=== PATIENT | male | born 1985 | race Caucasian/White ===

== ENCOUNTER 2017-01-13 15:27 | Emergency (ER) | payer OTHER ==
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
[2017-01-13] MEDS ORDERED: KETOROLAC TROMETHAMINE INJ/PF 30 MG/1 ML SDV IV ONE (15:39)
[2017-01-13 15:59] LABS: ABSOLUTE BASOPHILS # (AUTO) 0.1 10^3/uL (0.0-0.2); ABSOLUTE EOSINOPHILS # (AUTO) 0.2 10^3/uL (0.0-0.6); ABSOLUTE LYMPHOCYTES (AUTO) 2.1 10^3/uL (0.5-4.7); ABSOLUTE MONOCYTES (AUTO) 0.7 10^3/uL (0.1-1.4); ABSOLUTE NEUT (AUTO) 2.1 10^3/uL (1.7-8.2); BASOPHILS % (AUTO) 1.2 % (0-2); EOSINOPHILS % (AUTO) 3.7 % (0-6); HEMATOCRIT 38.1 % (37.9-51.0); HEMOGLOBIN 12.9 g/dL (13.5-17.0); HGB HCT DIFFERENCE 0.6; LYMPHOCYTES % (AUTO) 40.4 % (13-45); MEAN CORPUSCULAR HEMOGLOBIN 30.3 pg (27.0-33.4); MEAN CORPUSCULAR VOLUME 89 fl (80-97); MONOCYTES % (AUTO) 13.8 % (3-13); RED BLOOD COUNT 4.28 10^6/uL (4.35-5.55); RED CELL DISTRIBUTION WIDTH 13.4 % (11.5-14.0); SEGMENTED NEUTROPHILS % (AUTO) 40.9 % (42-78); WHITE BLOOD COUNT 5.2 10^3/uL (4.0-10.5)
[2017-01-13 16:18] LABS: ANION GAP 10 (5-19); BLOOD UREA NITROGEN 13 mg/dL (7-20); CALCIUM 9.9 mg/dL (8.4-10.2); CARBON DIOXIDE 31 mmol/L (22-30); CHLORIDE 103 mmol/L (98-107); CREATININE RESULT 1.26 mg/dL (0.52-1.25); GLUCOSE 90 mg/dL (75-110); POTASSIUM 4.8 mmol/L (3.6-5.0); SODIUM 143.9 mmol/L (137-145)
[2017-01-13 20:42] VITALS: BP 131/90
== END 2017-01-13 20:39 | disposition home or self-care (01) ==
LOC: ER 15:27
DX: M25.561 Pain in right knee (principal); M25.562 Pain in left knee; M54.5 Low back pain; M79.89 Other specified soft tissue disorders; W17.89XA Other fall from one level to another, initial encounter; Y93.39 Activity, other involving climbing, rappelling and jumping off; Y92.149 Unspecified place in prison as the place of occurrence of the external cause; R51 Headache; R04.2 Hemoptysis; R10.9 Unspecified abdominal pain; I10 Essential (primary) hypertension; Z87.891 Personal history of nicotine dependence
CPT/HCPCS: 99284; 96374; 36415; 85025; 80048; 73560; 70450; 72125; 74177; J1885

== ENCOUNTER 2018-06-14 08:03 | Emergency (ER) | payer SELFPAY ==
[2018-06-14] MEDS ORDERED: ONDANSETRON HCL INJ/PF 4 MG/2 ML SDV IV ONE (09:53)
[2018-06-14] MEDS ORDERED: LORAZEPAM INJ 2 MG/1 ML VIAL IV ONE (09:53)
[2018-06-14] MEDS ORDERED: CLONIDINE 0.1 MG/24 HR PATCH.TDWK TD ONE (09:53)
[2018-06-14] MEDS ORDERED: CLONIDINE HCL 0.1 MG TABLET PO ONE (09:54)
--- NOTE | 2018-06-14 09:54 | ER Document Report ---
ED General - General Chief Complaint: Bloody Stools Stated Complaint: BLOODY STOOL Time Seen by Provider: 06/14/18 09:18 Notes: This is a 33-year-old male to the emergency department chief complaint of abdominal pain, abdominal cramps, blood in his stool. Patient states that he tried to kill himself about 3 weeks ago by swallowing a bunch of nails and screws. Had upper endoscopy and multiple screws and metallic foreign bodies were removed. Was told nothing else to worry about. Was on Suboxone but has not taken any for 3 days. History of heroin abuse. States that he cannot stop shaking, he has abdominal pain and he is pooping and peeing blood. TRAVEL OUTSIDE OF THE [place] IN LAST 30 DAYS: No - HPI Onset: Yesterday Onset/Duration: Gradual, Persistent, Worse Quality of pain: Achy Severity: Moderate Pain Level: 4 Associated symptoms: Nausea, Vomiting - Related Data Allergies/Adverse Reactions: No Known Allergies Allergy (Verified 06/14/18 08:04) Past Medical History - General Information source: Patient - Social History Smoking Status: Current Every Day Smoker Frequency of alcohol use: Occasional Drug Abuse: Heroin, Other Lives with: Family Family History: Reviewed & Not Pertinent - Past Medical History Cardiac Medical History: Reports: Hx Hypertension Renal/ Medical History: Reports: Hx Renal Insufficiency GI Medical History: Reports: Hx Liver Failure Psychiatric Medical History: Reports: Hx Depression - Immunizations Immunizations up to date: Yes Hx Diphtheria, Pertussis, Tetanus Vaccination: Yes Review of Systems - Review of Systems Notes: Constitutional: denies: Diaphoresis, Fever, Malaise, Weakness. Positive for chills and shaking EENT: denies: Eye discharge, Blurred vision, Tearing, Double vision, Nose congestion, Nose discharge, Throat swelling, Mouth pain Cardiovascular: denies: Palpitations, Heart racing, Orthopnea, Dyspnea, Chest pain Respiratory: denies: Cough, Hurts to breathe, Wheezing, Shortness of breath Gastrointestinal: denies: Abdominal pain, nausea, vomiting, bright red blood per rectum, black stools. Genitourinary: denies: Burning, Dysuria, Discharge, Frequency, Flank pain. Positive for: Hematuria Musculoskeletal: denies: Joint pain, Joint swelling, Muscle pain, Muscle stiffness, back pain Hematologic/Lymphatic: denies: Anemia, Easy bleeding, Easy bruising, Blood clots Neurological/Psychological: denies: Confusion, Dementia, Depression, Loss of consciousness Skin: No lesions, no masses, no skin breakdown, no abscesses Physical Exam - Vital signs Vitals: Temp Pulse Resp BP Pulse Ox 98.9 F 102 H 18 146/92 H 98 06/14/18 08:18 06/14/18 08:18 18 08:18 06/14/18 08:18 06/14/18 08:18 Interpretation: Normal - General General appearance: Appears well, Alert - HEENT Head: Normocephalic, Atraumatic Eyes: Normal Pupils: PERRL - Respiratory Respiratory status: No respiratory distress Chest status: Nontender Breath sounds: Normal Chest palpation: Normal - Cardiovascular Rhythm: Regular Heart sounds: Normal auscultation Murmur: No - Abdominal Inspection: Normal Distension: No distension Bowel sounds: Normal Tenderness: Nontender Organomegaly: No organomegaly - Rectal Tenderness: No Stool: Heme negative Hemorrhoids: None Prostate: Normal - Back Back: Normal, Nontender - Extremities General upper extremity: Normal inspection, Nontender, Normal color, Normal ROM , Normal temperature General lower extremity: Normal inspection, Nontender, Normal color, Normal ROM , Normal temperature, Normal weight bearing. No: Shruti's sign - Neurological Neuro grossly intact: Yes Cognition: Normal Orientation: AAOx4 Corey Coma Scale Eye Opening: Spontaneous Corey Coma Scale Verbal: Oriented Corey Coma Scale Motor: Obeys Commands Corey Coma Scale Total: 15 Speech: Normal Motor strength normal: LUE, RUE, LLE, RLE Sensory: Normal - Psychological Associated symptoms: Normal affect, Normal mood - Skin Skin Temperature: Warm Skin Moisture: Dry Skin Color: Normal Course - Re-evaluation Re-evalutation: 06/14/18 14:51 Patient had complaints of workup in the emergency department. Labs were negative. Imaging studies were negative. Was given clonidine patch as well as oral clonidine and Ativan. This seems to help. Patient was IV hydrated. Vital signs are normal. Comfortable at this time discharging. 06/14/18 14:51 Laboratory 06/14/18 06/14/18 06/14/18 09:15 09:15 09:15 WBC 7.9 RBC 4.50 Hgb 13.6 Hct 40.1 MCV 89 MCH 30.2 MCHC 33.9 RDW 14.3 H Plt Count 269 Seg Neutrophils % 71.0 Lymphocytes % 21.3 Monocytes % 6.6 Eosinophils % 0.4 Basophils % 0.7 Absolute Neutrophils 5.6 Absolute Lymphocytes 1.7 Absolute Monocytes 0.5 Absolute Eosinophils 0.0 Absolute Basophils 0.1 PT 13.4 INR 0.97 APTT 28.6 Sodium 144.5 Potassium 4.6 Chloride 108 H Carbon Dioxide 22 Anion Gap 15 BUN 12 Creatinine 0.93 Est GFR ( Amer) > 60 Est GFR (Non-Af Amer) > 60 Glucose 102 Calcium 10.1 Total Bilirubin 0.6 Direct Bilirubin 0.3 Neonat Total Bilirubin Not Reportable Neonat Direct Bilirubin Not Reportable Neonat Indirect Bili Not Reportable AST 70 H ALT 125 H Alkaline Phosphatase 73 Total Protein 7.3 Albumin 4.4 Lipase 59.0 Urine Color Urine Appearance Urine pH Ur Specific [place] Urine Protein Urine Glucose (UA) Urine Ketones Urine Blood Urine Nitrite Urine Bilirubin Urine Urobilinogen Ur Leukocyte Esterase Urine WBC (Auto) Urine RBC (Auto) Urine Bacteria (Auto) Squamous Epi Cells Auto Urine Mucus (Auto) Urine Ascorbic Acid Stool Occult Blood Urine Opiates Screen Urine Methadone Screen Ur Barbiturates Screen Ur Phencyclidine Scrn Ur Amphetamines Screen U Benzodiazepines Scrn Urine Cocaine Screen U Marijuana (THC) Screen 06/14/18 06/14/18 06/14/18 09:15 09:15 09:50 WBC RBC Hgb Hct MCV MCH MCHC RDW Plt Count Seg Neutrophils % Lymphocytes % Monocytes % Eosinophils % Basophils % Absolute Neutrophils Absolute Lymphocytes Absolute Monocytes Absolute Eosinophils Absolute Basophils PT INR APTT Sodium Potassium Chloride Carbon Dioxide Anion Gap BUN Creatinine Est GFR ( Amer) Est GFR (Non-Af Amer) Glucose Calcium Total Bilirubin Direct Bilirubin Neonat Total Bilirubin Neonat Direct Bilirubin Neonat Indirect Bili AST ALT Alkaline Phosphatase Total Protein Albumin Lipase Urine Color DARK YELLOW Urine Appearance SLIGHTLY-CLOUDY Urine pH 5.0 Ur Specific [place] 1.032 Urine Protein 30 H Urine Glucose (UA) NEGATIVE Urine Ketones NEGATIVE Urine Blood LARGE H Urine Nitrite NEGATIVE Urine Bilirubin NEGATIVE Urine Urobilinogen NEGATIVE Ur Leukocyte Esterase NEGATIVE Urine WBC (Auto) 3 Urine RBC (Auto) 18 Urine Bacteria (Auto) TRACE Squamous Epi Cells Auto 2 Urine Mucus (Auto) MANY Urine Ascorbic Acid NEGATIVE Stool Occult Blood NEGATIVE Urine Opiates Screen UNCONFIRMED POSITIVE Urine Methadone Screen NEGATIVE Ur Barbiturates Screen NEGATIVE Ur Phencyclidine Scrn NEGATIVE Ur Amphetamines Screen NEGATIVE U Benzodiazepines Scrn NEGATIVE Urine Cocaine Screen NEGATIVE U Marijuana (THC) Screen NEGATIVE Acute Abdomen Series 06/14/18 09:53 IMPRESSION: NO RADIOGRAPHIC EVIDENCE FOR ACUTE ABDOMINAL DISEASE. Abdomen/Pelvis CT 06/14/18 11:36 IMPRESSION: NO SIGNIFICANT OR ACUTE PROCESS IN THE ABDOMEN OR PELVIS. - Vital Signs Vital signs: Temp Pulse Resp BP Pulse Ox 98.9 F 86 9 L 113/66 100 06/14/18 08:18 06/14/18 10:52 06/14/18 12:00 06/14/18 11:01 06/14/18 12:00 - Laboratory Result Diagrams: 06/14/18 09:15 06/14/18 09:15 Laboratory results interpreted by me: 06/14/18 06/14/18 06/14/18 09:15 09:15 09:15 RDW 14.3 H Chloride 108 H AST 70 H ALT 125 H Urine Protein 30 H Urine Blood LARGE H Discharge - Discharge Clinical Impression: Narcotic withdrawal Condition: Good Disposition: HOME, SELF-CARE Instructions: Narcotic Abuse ([facility]) Additional Instructions: It is possible to do you are experiencing symptoms consistent with withdrawal. Wear the clonidine patch for the next 7 days. You may take Ativan for extreme agitation. Zofran for nausea. If symptoms get worse please return. Prescriptions: Lorazepam [Ativan 0.5 mg Tablet] 0.5 mg PO TID 5 Days #15 tab Ondansetron [Zofran Odt 4 mg Tablet] 1 - 2 tab PO Q4H PRN #15 tab.rapdis PRN Reason: For Nausea/Vomiting
[2018-06-14 10:29] LABS: ABSOLUTE BASOPHILS # (AUTO) 0.1 10^3/uL (0.0-0.2); ABSOLUTE LYMPHOCYTES (AUTO) 1.7 10^3/uL (0.5-4.7); ABSOLUTE MONOCYTES (AUTO) 0.5 10^3/uL (0.1-1.4); ABSOLUTE NEUT (AUTO) 5.6 10^3/uL (1.7-8.2); BASOPHILS % (AUTO) 0.7 % (0-2); EOSINOPHILS % (AUTO) 0.4 % (0-6); HEMATOCRIT 40.1 % (37.9-51.0); HEMOGLOBIN 13.6 g/dL (13.5-17.0); LYMPHOCYTES % (AUTO) 21.3 % (13-45); MEAN CORPUSCULAR HEMOGLOBIN 30.2 pg (27.0-33.4); MEAN CORPUSCULAR HGB CONC 33.9 g/dL (32.0-36.0); MEAN CORPUSCULAR VOLUME 89 fl (80-97); MONOCYTES % (AUTO) 6.6 % (3-13); PLATELET COUNT 269 10^3/uL (150-450); RED CELL DISTRIBUTION WIDTH 14.3 % (11.5-14.0); TOTAL CELLS COUNTED % (AUTO) 100 %; WHITE BLOOD COUNT 7.9 10^3/uL (4.0-10.5)
[2018-06-14 10:31] LABS: INTERNATIONAL RATION (INR) 0.97; PROTHROMBIN TIME 13.4 SEC (11.4-15.4)
[2018-06-14 10:32] LABS: PARTIAL THROMBOPLASTIN TIME 28.6 SEC (23.5-35.8)
[2018-06-14 10:33] LABS: APPEARANCE,URINE SLIGHTLY-CLOUDY; BILIRUBIN,URINE NEGATIVE (NEGATIVE); GLUCOSE, URINE NEGATIVE (NEGATIVE); KETONES,URINE NEGATIVE (NEGATIVE); LEUKOCYTE ESTERASE,URINE NEGATIVE (NEGATIVE); NITRITE,URINE NEGATIVE (NEGATIVE); PROTEIN,URINE 30 mg/dL (NEGATIVE); URINE SPECIFIC GRAVITY 1.032; UROBILINOGEN,URINE NEGATIVE mg/dL (<2.0)
[2018-06-14 10:35] LABS: COLOR,URINE DARK YELLOW
--- NOTE | 2018-06-14 10:37 | RADIOLOGY REPORT (SQ) ---
EXAM DESCRIPTION: ACUTE ABDOMEN SERIES COMPLETED DATE/TIME: 06/14/2018 10:26 am REASON FOR STUDY: abd pain COMPARISON: 08/07/2016 NUMBER OF VIEWS: Three views. TECHNIQUE: Frontal chest, supine abdomen and upright/decubitus abdomen radiographic images acquired. LIMITATIONS: None. FINDINGS: CHEST: Lungs clear of infiltrates. FREE AIR: None. No abnormal gas collections. BOWEL GAS PATTERN: Nonobstructive pattern. No dilated loops or air fluid levels. CALCIFICATIONS: No suspicious calcifications. HARDWARE: None in the abdomen. SOFT TISSUES: No gross mass or suggestion of organomegaly. BONES: No acute fracture. No worrisome bone lesions. OTHER: No other significant finding. IMPRESSION: NO RADIOGRAPHIC EVIDENCE FOR ACUTE ABDOMINAL DISEASE. TECHNICAL DOCUMENTATION: JOB ID: [id number] [employer]- All Rights Reserved Reading location - IP/workstation name: [id number]
[2018-06-14 10:41] LABS: ALANINE AMINOTRANSFERASE 125 U/L (21-72); ALBUMIN 4.4 g/dL (3.5-5.0); ALKALINE PHOSPHATASE 73 U/L (38-126); ANION GAP 15 (5-19); ASPARTATE AMINO TRANSFERASE 70 U/L (17-59); BILIRUBIN,DIRECT 0.3 mg/dL (0.0-0.4); BILIRUBIN,TOTAL 0.6 mg/dL (0.2-1.3); BLOOD UREA NITROGEN 12 mg/dL (7-20); CALCIUM 10.1 mg/dL (8.4-10.2); CARBON DIOXIDE 22 mmol/L (22-30); CHLORIDE 108 mmol/L (98-107); GLUCOSE 102 mg/dL (75-110); POTASSIUM 4.6 mmol/L (3.6-5.0); SODIUM 144.5 mmol/L (137-145); TOTAL PROTEIN 7.3 g/dL (6.3-8.2)
[2018-06-14 10:46] LABS: URINE AMPHETAMINES SCREEN NEGATIVE; URINE BARBITURATES SCREEN NEGATIVE; URINE BENZODIAZEPINES SCREEN NEGATIVE; URINE COCAINE SCREEN NEGATIVE; URINE MARIJUANA (THC) SCREEN NEGATIVE; URINE METHADONE SCREEN NEGATIVE; URINE PHENCYCLIDINE SCREEN NEGATIVE
[2018-06-14] MEDS: NORMAL SALINE 1000 ML 1,000 ML IV PRN ×2 (10:51→11:39)
[2018-06-14] MEDS ORDERED: KETOROLAC TROMETHAMINE INJ/PF 30 MG/1 ML SDV IV ONE (11:36)
--- NOTE | 2018-06-14 13:20 | RADIOLOGY REPORT (SQ) ---
EXAM DESCRIPTION: CT ABD/PELVIS NO ORAL OR IV COMPLETED DATE/TIME: 06/14/2018 11:51 am REASON FOR STUDY: flank pain,hematuria COMPARISON: CT ABDOMEN PELVIS 01/13/2017, 08/26/2016 TECHNIQUE: CT scan of the abdomen and pelvis performed without intravenous or oral contrast. Images reviewed with lung, soft tissue, and bone windows. Reconstructed coronal and sagittal MPR images revi ewed. All images stored on PACS. All CT scanners at this facility use dose modulation, iterative reconstruction, and/or weight based d osing when appropriate to reduce radiation dose to as low as reasonably achievable (ALARA). [facility]: Dose Right [facility]: CareDose [facility]: Dose Right [facility]: Teradose 4D [facility]: [employer] RADIATION DOSE: CT Rad equipment meets quality standard of care and radiation dose reduction techniq ues were employed. CTDIvol: 5.9 mGy. DLP: 346 mGy-cm.mGy. LIMITATIONS: None. FINDINGS: LOWER CHEST: No significant findings. No nodules or infiltrates. NON-CONTRASTED LIVER, SPLEEN, ADRENALS: Evaluation limited by lack of IV contrast. No identified sign ificant masses. Benign 2 cm cyst left lobe liver anteriorly. PANCREAS: No masses. No peripancreatic inflammatory changes. GALLBLADDER: Single small less than 1 cm stone in the gallbladder. No inflammatory changes to suggest cholecystitis. RIGHT KIDNEY AND URETER: No suspicious masses. Assessment limited by lack of IV contrast. No signif icant calcifications. No hydronephrosis or hydroureter. LEFT KIDNEY AND URETER: No suspicious masses. Assessment limited by lack of IV contrast. No signifi cant calcifications. No hydronephrosis or hydroureter. AORTA AND RETROPERITONEUM: No aneurysm. No retroperitoneal masses or adenopathy. BOWEL AND PERITONEAL CAVITY: No obvious masses or inflammatory changes. No free fluid. APPENDIX: Normal. PELVIS, BLADDER, AND ABDOMINAL WALL:No abnormal masses. No free fluid. Bladder normal. BONES: Bilateral L5 spondylolysis without listhesis. . OTHER: No other significant finding. IMPRESSION: NO SIGNIFICANT OR ACUTE PROCESS IN THE ABDOMEN OR PELVIS. COMMENT: Quality ID # [id number]: Final reports with documentation of one or more dose reduction techniques (e.g., Automated exposure control, adjustment of the mA and/or kV according to patient size, use of iterative reconstruction technique) TECHNICAL DOCUMENTATION: JOB ID: [id number] [email or web address]- All Rights Reserved Reading location - IP/workstation name: [email or web address]
[2018-06-14 14:17] VITALS: BP 113/66
== END 2018-06-14 14:30 | disposition home or self-care (01) ==
LOC: ER 08:03
DX: F11.23 Opioid dependence with withdrawal (principal); K92.1 Melena; R31.0 Gross hematuria; R10.9 Unspecified abdominal pain; F17.200 Nicotine dependence, unspecified, uncomplicated; I10 Essential (primary) hypertension; Z91.5 Personal history of self-harm; Z98.890 Other specified postprocedural states
CPT/HCPCS: 99285; 96361; 96374; 96375; 36415; 83690; 85025; 85610; 85730; 82272; 80053; 81001; 80307; 74022; 74176; J1885; J2060; J2405; J7030; J3490

== ENCOUNTER 2018-10-30 09:37 | Emergency (ER) | payer SELFPAY ==
[2018-10-30] MEDS ORDERED: ONDANSETRON HCL INJ/PF 4 MG/2 ML SDV IV ONE (09:48)
[2018-10-30] MEDS ORDERED: FENTANYL CITRATE INJ/PF 100 MCG/2 ML AMPUL IV ONE (09:48)
[2018-10-30] MEDS ORDERED: NORMAL SALINE 1000 ML 1,000 ML IV ONE (09:49)
--- NOTE | 2018-10-30 09:50 | ER Document Report ---
ED Medical Screen (RME) - General Chief Complaint: Overdose Stated Complaint: OVERDOSE Time Seen by Provider: 10/30/18 09:46 TRAVEL OUTSIDE OF THE [place] IN LAST 30 DAYS: No - Related Data Allergies/Adverse Reactions: No Known Allergies Allergy (Verified 10/30/18 09:38) Past Medical History - Past Medical History Cardiac Medical History: Reports: Hx Hypertension Renal/ Medical History: Reports: Hx Renal Insufficiency. Denies: Hx Peritoneal Dialysis GI Medical History: Reports: Hx Liver Failure Psychiatric Medical History: Reports: Hx Depression - Immunizations Immunizations up to date: Yes Hx Diphtheria, Pertussis, Tetanus Vaccination: Yes Course - Re-evaluation Re-evalutation: 10/30/18 09:49 This is a 33-year-old man that presented for evaluation of an ingestion of broken batteries at least 2 of them in half as well as multiple nails and an attempt to inject air into his veins. He states this was an intentional overdose to try and kill himself. He is done once like this in the past and required endoscopy for removal saying that it almost killed him. He is obviously uncomfortable, will initiate a broad workup including tox screen and urine drug screen, cardiac monitoring, EKG, acetaminophen and salicylate level. I will plan for this patient undergo further investigation evaluation by secondary provider, the the appropriate diagnostics, disposition and workup will be deferred to that provider. I have performed a rapid screening examination and they will require further evaluation.
--- NOTE | 2018-10-30 10:10 | ER Document Report ---
Addendum entered and electronically signed by KLAUS PAGE LCSWA 11/05/18 11:36: Discharge - Discharge Clinical Impression: Noncompliance with medication regimen, Cocaine abuse, Substance abuse, Suicidal ideation, Opioid abuse Foreign body ingestion Qualifiers: Encounter type: initial encounter Qualified Code(s): T18.9XXA - Foreign body of alimentary tract, part unspecified, initial encounter Depression Qualifiers: Depression Type: unspecified Qualified Code(s): F32.9 - Major depressive disorder, single episode, unspecified Condition: Stable Disposition: HOME, SELF-CARE Additional Instructions: He has been evaluated both medical and behavioral health teams and been deemed appropriate for discharge. You are highly encouraged to follow-up with your outpatient mental health provider, [facility] [address], to receive both medication management and therapeutic services for your mental health and substance abuse. It is recommended you engage in cognitive behavioral therapy and attend both AA and NA meetings. You have been provided prescriptions for Zyprexa 5 mg twice daily, Thorazine 50 mg nightly, and Cogentin 1 mg daily; please take as directed. DEPRESSION: Your evaluation reveals that you have mental depression. While symptoms may be vague, they often include disturbance of sleep, fatigue, loss of appetite, and general loss of interest in life. While depression may be a side effect of drugs, or a reaction to a major change in your life, many cases have no known cause. If depression is acute, and related to a major loss in your life, you can expect it to clear completely with time. If you have been depressed a long time, are prone to repeated bouts of depression or low mood, or have been thinking of suicide, get help. Depression can be treated with anti-depressant medication and counselling. Long-term depression will often take a few weeks to clear, even with appropriate medication. Follow-up care is important. SUICIDAL IDEATION: Suicidal ideation is a common medical term for thoughts about suicide, which may be as detailed as a formulated plan, without the suicidal act itself. Although most people who undergo suicidal ideation do not commit suicide, some go on to make suicide attempts. The range of suicidal ideation varies greatly from fleeting to detailed planning, role playing, and unsuccessful attempts. While thoughts about suicide are common, most people do not carry out serious actions to commit suicide. Based upon your evaluation and discussion with you, we do not believe you are currently at risk to act upon your thoughts of suicide. You have agreed to return to the Emergency Department, at any time, if you feel inclined to act upon your suicidal thoughts. COCAINE ABUSE: Cocaine causes many dangerous medical problems. Problems can occur even with "usual" amounts. Cocaine affects judgement, creating a sense of invulnerability. Cocaine users often make bad decisions that seem "great" at the time. Most cocaine users eventually will be hurt by bad job performance, damaged personal relations, crime, and unsafe sexual practices. Toxic effects of cocaine can include seizures, hallucinations, delusions, high blood pressure, heart damage, or sudden . There's always the risk of a "bad batch." But heart attacks, brain hemorrhages, or cardiac arrest can occur unpredictably even with "normal" use. Injection of cocaine is risky for abscesses, endocarditis (heart infection), pneumonia, and AIDS. Withdrawal from cocaine often causes anxiety and drug cravings. Some users become paranoid and psychotic. Many treatment programs are available, but you must make the decision to quit. Medication can be prescribed to control the symptoms of cocaine toxicity (beta blockers or benzodiazepines). Withdrawal symptoms may require tranquilizers. NARCOTIC / OPIOD ABUSE: Narcotics and opiods are pain-relieving drugs that are often abused. They are addicting. Narcotics cause euphoria, but it often takes increasing amounts to "feel good" and avoid withdrawal symptoms. Overdose of narcotics causes small pupils, coma, and decreased breathing. It's a common cause of . Purity of street narcotics is unpredictable. Injection of narcotics is risky for abscesses, endocarditis (heart infection), pneumonia, and AIDS. Withdrawal from narcotics causes goose bumps, watery mouth, sweating, nasal congestion, muscle aches, abdominal cramps, vomiting, and diarrhea. There's often restlessness and confusion. Treatment programs are available, but you must make the decision to quit. Medication (such as clonidine) can be prescribed to control the symptoms of withdrawal. FOLLOW-UP CARE: If you experience worsening or a significant change in your symptoms, notify the physician immediately or return to the Emergency Department at any time for re- evaluation. Referrals: [facility] [Outside] - Follow up in 3-5 days [facility] Crisis Team [Outside] - Follow up as needed Chanelibe Attestation: 10/30/18 12:42 I personally performed the services described in the documentation, reviewed and edited the documentation which was dictated to the scribe in my presence, and it accurately records my words and actions. Original Note: ED Psych Disorder / Suicide - General Mode of Arrival: Ambulatory Information source: Patient TRAVEL OUTSIDE OF THE [place] IN LAST 30 DAYS: No <HOPE WAHL - Last Filed: 10/30/18 12:16> <MASSIEL QUIROZ - Last Filed: 10/30/18 17:19> - General Chief Complaint: Overdose Stated Complaint: OVERDOSE Time Seen by Provider: 10/30/18 09:46 Notes: Patient is a 33 year old male with a history of suicidal ideation presents to the emergency department due to an suicide attempt. Patient states he swallowed screws, nails, and opened AA batteries in attempt to commit suicide around 0800 this morning. When asked why, he states "Cornelius". When asked to elaborate he states "I'm tired of the daily struggle". Patient states he last consumed alcohol 2 days ago. Patient states that he is currently prescribed Zoloft and Seroquel but had stopped taking the medication on his own accord. Of significance, patient presented and was admitted to this hospital on 1 after swallowing nail clippers and pieces of a plastic utensil. He also presented and was admitted to this hospital on 08/27/2016 after swallowing copious amounts of screws, nails, and AA batteries. Patient also has a history of cocaine, prescription drug and alcohol abuse. (HOPE WAHL) The patient reported that he had tried injecting air into his veins and when that did not work he ingested the screws, and batteries. (MASSIEL QUIROZ) - Related Data Allergies/Adverse Reactions: No Known Allergies Allergy (Verified 10/30/18 09:38) Past Medical History - General Information source: Patient - Social History Smoking Status: Current Every Day Smoker Cigarette use (# per day): Yes - 1 PPD Chew tobacco use (# tins/day): No Smoking Education Provided: No Frequency of alcohol use: Heavy Drug Abuse: Cocaine, Heroin Family History: Reviewed & Not Pertinent Patient has suicidal ideation: Yes Patient has homicidal ideation: No - Past Medical History Cardiac Medical History: Reports: Hx Hypertension Renal/ Medical History: Reports: Hx Renal Insufficiency GI Medical History: Reports: Hx Liver Failure Psychiatric Medical History: Reports: Hx Depression - Immunizations Immunizations up to date: Yes Hx Diphtheria, Pertussis, Tetanus Vaccination: Yes <MARYURIHOPE WHITLEY - Last Filed: 10/30/18 12:16> Review of Systems - Review of Systems Constitutional: No symptoms reported EENT: No symptoms reported Cardiovascular: No symptoms reported Respiratory: No symptoms reported Gastrointestinal: See HPI, Abdominal pain Genitourinary: No symptoms reported Male Genitourinary: No symptoms reported Musculoskeletal: No symptoms reported Skin: No symptoms reported Hematologic/Lymphatic: No symptoms reported Neurological/Psychological: See HPI, Suicidal ideation -: Yes All other systems reviewed and negative <MARYURIHOPE WHITLEY - Last Filed: 10/30/18 12:16> Physical Exam <HOPE WAHL - Last Filed: 10/30/18 12:16> - Vital signs Vitals: Pulse Resp Pulse Ox 133 H 18 99 10/30/18 09:49 10/30/18 09:49 10/30/18 09:49 - Notes Notes: GENERAL: Alert, moaning in bed. No acute distress. HEAD: Normocephalic, atraumatic. EYES: Pupils equal, round, and reactive to light. Extraocular movements intact. ENT: Oral mucosa moist, tongue midline. NECK: Full range of motion. Supple. Trachea midline. LUNGS: Clear to auscultation bilaterally, no wheezes, rales, or rhonchi. No respiratory distress. HEART: Regular rate and rhythm. No murmurs, gallops, or rubs. ABDOMEN: Soft, RLQ tender to palpation, guarding. Non-distended. Bowel sounds present in all 4 quadrants. EXTREMITIES: Moves all 4 extremities spontaneously. NEUROLOGICAL: Alert and oriented x3. Normal speech. PSYCH: Normal affect, normal mood. SKIN: Warm, dry, normal turgor. No rashes or lesions noted. (HOPE WAHL) Course - Laboratory Result Diagrams: 10/30/18 10:10 10/30/18 10:10 <HOPE WAHL - Last Filed: 10/30/18 12:16> - Laboratory Result Diagrams: 10/30/18 10:10 10/30/18 10:10 - Diagnostic Test Radiology reviewed: Reports reviewed - 2 AA batteries, one small round machine slotted head boat, and one small wood screw seen in the stomach. No free air. - EKG Interpretation by Me EKG shows normal: Sinus rhythm, Martin, Intervals, QRS Complexes, ST-T Waves Rate: Normal - 55 Rhythm: NSR When compared to previous EKG there are: No significant change - Consults Dr. Xiong Time consulted: 11:11 Consulted provider: will come to ER <MASSIEL QUIROZ - Last Filed: 10/30/18 17:19> - Re-evaluation Re-evalutation: 10/30/18 13:20 At this time the plan is for the patient to go to the operating room for endoscopic removal of the gastric foreign bodies. Afterwards he will return to the emergency room where he will remain on IVC hold. 10/30/18 17:18 The nurse just informed me the patient was pulling out his IVs taking things off and trying to leave. He will be restrained by security and placed in four- point restraints as he is presently under an involuntary commitment order. (MASSIEL QUIROZ) - Vital Signs Vital signs: Temp Pulse Resp BP Pulse Ox 97.9 F 71 18 98/59 L 94 10/30/18 15:50 10/30/18 15:50 10/30/18 15:50 10/30/18 15:50 10/30/18 15:50 - Laboratory Laboratory results interpreted by me: 10/30/18 10/30/18 10:10 10:10 WBC 12.9 H RDW 14.2 H Absolute Neutrophils 9.6 H Carbon Dioxide 31 H Glucose 124 H Calcium 10.7 H AST 99 H ALT 185 H Total Protein 8.5 H Salicylates < 1.0 L Acetaminophen < 10 L Discharge <HOPE WAHL - Last Filed: 10/30/18 12:16> <MASSIEL QUIROZ - Last Filed: 10/30/18 17:19> - Discharge Clinical Impression: Noncompliance with medication regimen, Cocaine abuse, Substance abuse, Suicidal ideation Foreign body ingestion Qualifiers: Encounter type: initial encounter Qualified Code(s): T18.9XXA - Foreign body of alimentary tract, part unspecified, initial encounter Depression Qualifiers: Depression Type: unspecified Qualified Code(s): F32.9 - Major depressive disorder, single episode, unspecified Condition: Stable Disposition: PSYCH HOSP/UNIT Scribe Attestation: 10/30/18 12:42 I personally performed the services described in the documentation, reviewed and edited the documentation which was dictated to the scribe in my presence, and it accurately records my words and actions. (MASSIEL QUIROZ) Scribe Documentation - Scribe Written by Chanelibe:: Fam Jennings, 10/30/2018 10:20 acting as scribe for :: Shelia <HOPE WAHL - Last Filed: 10/30/18 12:16>
[2018-10-30 10:34] LABS: ABSOLUTE BASOPHILS # (AUTO) 0.1 10^3/uL (0.0-0.2); ABSOLUTE EOSINOPHILS # (AUTO) 0.1 10^3/uL (0.0-0.6); ABSOLUTE LYMPHOCYTES (AUTO) 2.3 10^3/uL (0.5-4.7); ABSOLUTE MONOCYTES (AUTO) 0.8 10^3/uL (0.1-1.4); ABSOLUTE NEUT (AUTO) 9.6 10^3/uL (1.7-8.2); BASOPHILS % (AUTO) 0.6 % (0-2); EOSINOPHILS % (AUTO) 0.6 % (0-6); HEMATOCRIT 45.2 % (37.9-51.0); HEMOGLOBIN 15.5 g/dL (13.5-17.0); LYMPHOCYTES % (AUTO) 17.7 % (13-45); MEAN CORPUSCULAR HEMOGLOBIN 30.6 pg (27.0-33.4); MEAN CORPUSCULAR HGB CONC 34.3 g/dL (32.0-36.0); MEAN CORPUSCULAR VOLUME 89 fl (80-97); MONOCYTES % (AUTO) 6.5 % (3-13); PLATELET COUNT 345 10^3/uL (150-450); RED BLOOD COUNT 5.08 10^6/uL (4.35-5.55); RED CELL DISTRIBUTION WIDTH 14.2 % (11.5-14.0); SEGMENTED NEUTROPHILS % (AUTO) 74.6 % (42-78); TOTAL CELLS COUNTED % (AUTO) 100 %; WHITE BLOOD COUNT 12.9 10^3/uL (4.0-10.5)
--- NOTE | 2018-10-30 10:45 | RADIOLOGY REPORT (SQ) ---
EXAM DESCRIPTION: ACUTE ABDOMEN SERIES COMPLETED DATE/TIME: 10/30/2018 10:24 am REASON FOR STUDY: Swallowed nails/free air under diaphragm COMPARISON: None. NUMBER OF VIEWS: Three views. TECHNIQUE: Frontal chest, supine abdomen and upright abdomen radiographic images acquired. LIMITATIONS: None. FINDINGS: CHEST: Lungs clear of infiltrates. Cardiac silhouette size, waqar, bony structures unremar kable. FREE AIR: None. No abnormal gas collections. BOWEL GAS PATTERN: Nonobstructive pattern. No dilated loops or air fluid levels. CALCIFICATIONS: No suspicious calcifications. HARDWARE: There are 2 AA batteries and 2 screws in the gastric body. SOFT TISSUES: No gross mass or suggestion of organomegaly. BONES: No acute fracture. No worrisome bone lesions. OTHER: No other significant finding. IMPRESSION: 2 AA batteries and 2 screws in the gastric body No plain film evidence of bowel obstruction TECHNICAL DOCUMENTATION: JOB ID: [id number] [employer]- All Rights Reserved Reading location - IP/workstation name: [email or web address]
[2018-10-30 10:56] LABS: ALANINE AMINOTRANSFERASE 185 U/L (21-72); ALKALINE PHOSPHATASE 118 U/L (38-126); ANION GAP 13 (5-19); ASPARTATE AMINO TRANSFERASE 99 U/L (17-59); BILIRUBIN,DIRECT 0.3 mg/dL (0.0-0.4); BILIRUBIN,TOTAL 1.1 mg/dL (0.2-1.3); BLOOD UREA NITROGEN 19 mg/dL (7-20); CALCIUM 10.7 mg/dL (8.4-10.2); CARBON DIOXIDE 31 mmol/L (22-30); CHLORIDE 100 mmol/L (98-107); GLUCOSE 124 mg/dL (75-110); LIPASE 53.8 U/L (23-300); POTASSIUM 4.2 mmol/L (3.6-5.0); SODIUM 143.7 mmol/L (137-145); TOTAL PROTEIN 8.5 g/dL (6.3-8.2)
[2018-10-30 11:00] LABS: ACETAMINOPHEN < 10 ug/mL (10-30); ALCOHOL < 10 mg/dL (NONE DETECTED); SALICYLATE < 1.0 mg/dL (2.0-20.0)
[2018-10-30 12:15] LABS: URINE AMPHETAMINES SCREEN NEGATIVE; URINE BARBITURATES SCREEN NEGATIVE; URINE BENZODIAZEPINES SCREEN NEGATIVE; URINE COCAINE SCREEN UNCONFIRMED POSITIVE; URINE MARIJUANA (THC) SCREEN NEGATIVE; URINE METHADONE SCREEN NEGATIVE; URINE PHENCYCLIDINE SCREEN NEGATIVE
--- NOTE | 2018-10-30 12:24 | PSYCHOLOGICAL NOTE ---
Psych Note - Psych Note Date seen by psych provider: 10/30/18 Time seen by psych provider: 11:30 Psych Note: Reason for Consult: Suicidal ideation Consent permissions: Significant other, Dana This is a 33-year-old man that presented for evaluation of an ingestion of br oken batteries at least 2 of them in half as well as multiple nails and an attempt to inject air into his veins. Patient reports that he is here at [facility] ED because he "attempted suicide." He reports that he attempted to inject air into his veins and when that did not work he swallowed some batteries and some screws. He reports he did this previous 2 years ago. He discloses that he "does not want to do it anymore. The bullshit... Family." He identifies [place] is his trigger. He has an outpatient mental health provider with Dr. Nazario at [facility] and is prescribed Zoloft and Seroquel however admits to not taking his medications. He states that he is diagnosed with PTSD and bipolar has a previous inpatient psychiatric treatment 2 years ago when sent to [place] for his previous event of swallowing things. He reports that he currently does live alone however does have a home that he feels safe in. 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 He reports [facility] stating "those times are gone and done." Patient is alert and orientated to person, place, time and circumstance. Mood is flat with flat affect. Patient endorses suicidal ideation with attempt of injecting air into his veins and then swallowing batteries and a screw. Patient denies homicidal ideation. Delusions are absent behaviors congruent with an intact reality based presentation i.e. organized and linear thought process. Eye contact was well-maintained. Conversational speech was within normal rate, tone and prosody. Intellectual abilities appear to be within the average range. Attention and concentration are fair. Insight, judgment, impulse control are poor. No medication recommendations at this time Diagnosis 296.51 (F31.31) Bipolar 1 Disorder, Mild, Most recent Episode Depressed 304.20 (F14.20) Cocaine Use Disorder, Moderate 292.9 (F11.99) Unspecified Opioid-Related Disorder Impression\\plan: Patient is recommended for IVC. Patient reports intentionally trying to harm himself by injecting air into his veins and when that did not kill him he started swallowing batteries and screws. He discloses one previous event of swallowing things with intent of killing herself. Patient will be undergoing surgery and surgeon requested patient to be evaluated prior to procedure. Patient will be reevaluated. Dr. Emmanuel was consulted and the care management of this patient; attending physicians in agreement with recommendations and disposition.
--- NOTE | 2018-10-30 12:35 | PDOC CONSULTATION ---
Consultation Consult Date: 10/30/18 Consult reason:: Nominal pain after swallowing foreign body History of Present Illness Patient complains of: Jeffrey Morris is a 33-year-old male who presents with abdominal pain. History of swallowing foreign bodies and presents with 2 batteries and 2 wood screws. Dates that he has not eaten any solid food last 2 days and complains of some epigastric pain at this point with no chills no sweats History of Present Illness: GEO MORRIS is a 33 year old male Past Medical History Cardiac Medical History: Reports: Hypertension Psychiatric Medical History: Reports: Depression - Had uPatient has had previous admispions for ingestion of foreign bodies in Social History Smoking Status: Current Every Day Smoker Frequency of Alcohol Use: None Hx Recreational Drug Use: No Drugs: None - History of opiate-related habituated abuse Family History Family History: Reviewed & Not Pertinent Parental Family History Reviewed: No Children Family History Reviewed: Unknown Sibling(s) Family History Reviewed.: Unknown Medication/Allergy Home Medications: Buspirone HCl [Buspar 15 mg Tablet] 1 tab PO QHS #5 tab 08/31/16 Levetiracetam [Keppra 500 mg Tablet] 500 mg PO Q12 #10 tablet 08/31/16 Lorazepam [Ativan 0.5 mg Tablet] 0.5 mg PO TID 5 Days #15 tab 06/14/18 Ondansetron [Zofran Odt 4 mg Tablet] 1 - 2 tab PO Q4H PRN #15 tab.rapdis 06/14/18 Allergies/Adverse Reactions: No Known Allergies Allergy (Verified 10/30/18 09:38) Physical Exam Vital Signs: Temp Pulse Resp BP Pulse Ox 98.0 F 65 12 131/76 H 99 10/30/18 11:09 10/30/18 11:09 10/30/18 11:09 10/30/18 11:09 10/30/18 11:09 Intake & Output 10/29/18 10/30/18 10/31/18 06:59 06:59 06:59 Intake Total 1000 Balance 1000 Weight 83.915 kg General appearance: PRESENT: no acute distress Throat exam: PRESENT: other - Normal throat exam Cardiovascular exam: PRESENT: RRR GI/Abdominal exam: PRESENT: soft Rectal exam: PRESENT: deferred Extremities exam: PRESENT: full ROM Musculoskeletal exam: PRESENT: ambulatory Neurological exam: PRESENT: alert, awake, oriented to person Psychiatric exam: PRESENT: other - See the psychiatrist note for examination Skin exam: PRESENT: dry Results Laboratory Results: 10/30/18 10:10 10/30/18 10:10 10/30/18 10/30/18 10/30/18 10:10 10:10 11:00 WBC 12.9 H RBC 5.08 Hgb 15.5 Hct 45.2 MCV 89 MCH 30.6 MCHC 34.3 RDW 14.2 H Plt Count 345 Seg Neutrophils % 74.6 Lymphocytes % 17.7 Monocytes % 6.5 Eosinophils % 0.6 Basophils % 0.6 Absolute Neutrophils 9.6 H Absolute Lymphocytes 2.3 Absolute Monocytes 0.8 Absolute Eosinophils 0.1 Absolute Basophils 0.1 Sodium 143.7 Potassium 4.2 Chloride 100 Carbon Dioxide 31 H Anion Gap 13 BUN 19 Creatinine 1.09 Est GFR ( Amer) > 60 Est GFR (Non-Af Amer) > 60 Glucose 124 H Calcium 10.7 H Total Bilirubin 1.1 AST 99 H ALT 185 H Alkaline Phosphatase 118 Total Protein 8.5 H Albumin 5.0 Lipase 53.8 Blood Type O POSITIVE Antibody Screen NEGATIVE Impressions: Acute Abdomen Series 10/30/18 09:48 IMPRESSION: 2 AA batteries and 2 screws in the gastric body No plain film evidence of bowel obstruction Status: Image reviewed by me - There are 4 foreign bodies noted in the antrum of the stomach Assessment & Plan - Diagnosis (1) Foreign body ingestion Qualifiers: Encounter type: initial encounter Qualified Code(s): T18.9XXA - Foreign body of alimentary tract, part unspecified, initial encounter - Plan Summary Plan Summary: Long discussion with patient and with psychiatrist felt the best course of action at this point is to perform upper endoscopy and remove foreign bodies we have elected to do this in the operating room where under LMAC esthesia and if unable to remove them using endoscopic techniques the patient is consented for diagnostic laparoscopy possible laparotomy for removal stands risks and benefits of the procedure and agrees to proceed
[2018-10-30] MEDS: CEFAZOLIN 1 GM/D5W RTU 1 GM/50 ML RTUPB IV SCH ×2 (13:05→19:36)
--- NOTE | 2018-10-30 13:31 | EKG REPORT ---
SEVERITY:- ABNORMAL ECG - SINUS RHYTHM ARTIFACTS NOTED. REC REPEAT EKG : Confirmed by: Matt Barrera 30-Oct-2018 13:31:19
[2018-10-30] MEDS ORDERED: LIDOCAINE 2% INJ-PF (20 MG/ML) 10 ML AMPUL ONE (13:52)
[2018-10-30] MEDS ORDERED: KETAMINE HCL INJ 500 MG/10 ML VIAL ONE (13:52)
[2018-10-30] MEDS ORDERED: MIDAZOLAM 2 MG/2 ML INJ ONE (13:52)
[2018-10-30] MEDS ORDERED: FENTANYL CITRATE INJ/PF 100 MCG/2 ML AMPUL ONE (13:52)
[2018-10-30] MEDS ORDERED: EPHEDRINE SULFATE INJ 50 MG/1 ML AMPULE ONE (13:53)
[2018-10-30] MEDS ORDERED: PROPOFOL INJ 200 MG/20 ML VIAL IV ONE ×3 (13:53→15:00)
[2018-10-30] MEDS ORDERED: DEXMEDETOMIDINE INJ 80 MCG/20 ML VIAL IV ONE (13:53)
[2018-10-30] MEDS ORDERED: ONDANSETRON HCL INJ/PF 4 MG/2 ML SDV ONE (15:01)
[2018-10-30] MEDS ORDERED: GLYCOPYRROLATE 1 MG/5 ML SYRINGE ONE (15:01)
[2018-10-30] MEDS ORDERED: PROMETHAZINE HCL INJ 25 MG/1 ML VIAL IV PRN ×2 (15:15)
[2018-10-30] MEDS ORDERED: MEPERIDINE HCL/PF INJ 25 MG/1 ML DISP.SYRIN IV PRN (15:15)
[2018-10-30] MEDS ORDERED: FENTANYL CITRATE INJ/PF 100 MCG/2 ML AMPUL IV PRN ×3 (15:15)
[2018-10-30] MEDS ORDERED: ONDANSETRON HCL INJ/PF 4 MG/2 ML SDV IV PRN (15:15)
[2018-10-30] MEDS ORDERED: DIPHENHYDRAMINE HCL 50 MG/ML VIAL IV PRN (15:15)
--- NOTE | 2018-10-30 15:29 | Operative Report ---
Operative Report DATE OF SURGERY: 10/30/18 PREOPERATIVE DIAGNOSIS: Foreign body stomach POSTOPERATIVE DIAGNOSIS: Multiple foreign bodies stomach OPERATION: Endoscopic removal of multiple foreign bodies stomach SURGEON: FRANDY DALY ANESTHESIA: LMAC TISSUE REMOVED OR ALTERED: 2 AA batteries, one short machine screw, one long with screw. COMPLICATIONS: No complications. ESTIMATED BLOOD LOSS: Minimal blood loss. INTRAOPERATIVE FINDINGS: Operative findings include gastritis, small hernia, enforce foreign bodies. PROCEDURE: Patient was brought to the operating room in awake alert stable condition in the operative table in a left decubitus position after undergoing sedation via local MAC. Using Olympus scope was placed in through the posterior pharynx and then the esophagus through the esophagus into the proximal stomach she will visualization the proximal stomach revealed mild gastritis we then advanced the scope to the pylorus the pylorus was intubated and identified the duodenum and some bile within the duodenum it was then pulled back into the antrum of the stomach were on the greater curvature the stomach we noted noted the for foreign bodies which included to AA batteries and 2 screws. During the endoscopic net and after multiple passes we were able to one by one remove all foreign bodies the 2 screws and then separately the 2 batteries. Required 4-5 passes with the scope for multiple occasions where the where the batteries got hung up at the GE junction. After a number of attempts were able to remove remove all for foreign bodies. Removing the last foreign body I rescoped the patient the scope back down through the posterior pharynx into the duodenum past the pylorus and then slowly withdrew the scope was performed J maneuver were identified the GE junction and it was uninjured we noted the small hiatal hernia at that point there was some mild superficial gastritis noted in the stomach and the antrum of the stomach there was no evidence of any hemorrhage no evidence of any erosion or perforation. Completion of this the patient was then placed in a supine position and emerged from his sedation for the procedure estimated blood loss was negligible G needle counts were correct x2 she was transferred back to recovery room in stable condition. Surgeon for the procedure Tyrese
[2018-10-30] MEDS ORDERED: HYDROXYZINE HCL INJ 50 MG/1 ML VIAL IM ONE ×2 (17:27→20:00)
[2018-10-30] MEDS ORDERED: ZOLPIDEM TARTRATE 5 MG TABLET PO ONE (21:00)
--- NOTE | 2018-10-31 10:23 | ER Document Report ---
Doctor's Note Notes: 10/31/18 10:21 Patient states he feels like he is withdrawing from EtOH and opiates. Patient states he drinks at least drinks 1/5 of liquor a day and takes at least 20 Vicodin or Percocet a day. Patient states his symptoms include feeling sweaty, hot and cold, diarrhea, headache, nausea, vomiting, and the shakes. Patient states that she is vomiting "periodically". Patient denies any hallucinations. PHYSICAL EXAM GENERAL: Alert, interacts well. No acute distress. Fine tremor. HEAD: Normocephalic, atraumatic. EYES: Pupils equal, round, and reactive to light. Extraocular movements intact. ENT: Oral mucosa moist, tongue midline. NECK: Full range of motion. Supple. Trachea midline. LUNGS: Clear to auscultation bilaterally, no wheezes, rales, or rhonchi. No respiratory distress. HEART: Regular rate and rhythm. No murmurs, gallops, or rubs. ABDOMEN: Soft, non-tender. Non-distended. Bowel sounds present in all 4 quadrants. No guarding, rigidity, or rebound. EXTREMITIES: Moves all 4 extremities spontaneously. NEUROLOGICAL: Alert and oriented x3. Normal speech. PSYCH: Normal affect, normal mood. SKIN: Warm, diaphoretic, normal turgor. No rashes or lesions noted. (JOSE SWANSON) 10/31/18 19:12 CIWA protocol ordered, no indication for ativan for acute alcohol withdrawal at this time, only minimal tremor, patient was given Toradol for muscle aches which he states helped. Patient remains on IVC protocol. (AUSTIN SAHU) Scribe Documentation - Scribe Written by Scribe:: Jose Swanson, Fam, 10/31/2018 1042 acting as scribe for :: Davey
[2018-10-31] MEDS ORDERED: KETOROLAC TROMETHAMINE 60 MG/2 ML SDV IM ONE (10:34)
[2018-10-31] MEDS ORDERED: DICYCLOMINE HCL INJ 20 MG/2 ML AMPULE IM ONE (10:35)
[2018-10-31] MEDS ORDERED: ONDANSETRON 4 MG TAB.RAPDIS PO ONE (10:35)
[2018-10-31] MEDS: CEFAZOLIN 1 GM/D5W RTU 1 GM/50 ML RTUPB IV SCH (10:43)
--- NOTE | 2018-10-31 13:12 | PSYCHOLOGICAL NOTE ---
Psych Note - Psych Note Date seen by psych provider: 10/31/18 Time seen by psych provider: 09:35 Psych Note: Reason for consult: Suicide attempt Check-in conducted with patient. He reports that he has not feeling well with his depression and anxiety; "my depression anxiety is kicking my asked this morning." He reports he feels like his mind is all over the place. He confirms that he used Vicodin prior to arrival and that is not prescribed to him however denies use of cocaine. He reports that he relapsed the other day because his mental health was getting so bad. Patient continues to report that he wants to . No medication recommendations at this time Diagnosis 296.51 (F31.31) Bipolar 1 Disorder, Mild, Most recent Episode Depressed 304.20 (F14.20) Cocaine Use Disorder, Moderate 292.9 (F11.99) Unspecified Opioid-Related Disorder Impression\\plan: Patient is recommended for continued IVC. Patient reports intentionally trying to harm himself by injecting air into his veins and when that did not kill him he started swallowing batteries and screws. He continues to endorse suicidal ideation and wanting to "end it all." There is concern the patient is demonstrating drug seeking behaviors. While patient attempted to report sobriety for the last 2 years patient was positive and his toxicology screening for both opiate and cocaine. Patient admits to only opiate use of Vicodin and confirms that he is not prescribed it. Attending physicians are asked to consider patient's addiction prior to prescribing any medications. Patient will be reevaluated. Dr. Emmanuel was consulted and the care management of this patient; attending physicians in agreement with recommendations and disposition.
[2018-10-31] MEDS: KETOROLAC TROMETHAMINE INJ/PF 30 MG/1 ML SDV IM SCH ×2 (17:15→23:22)
[2018-11-01] MEDS: KETOROLAC TROMETHAMINE INJ/PF 30 MG/1 ML SDV IM SCH (08:24)
[2018-11-01] MEDS ORDERED: VENLAFAXINE HCL 37.5 MG CAP.SR.24H PO SCH (14:00)
--- NOTE | 2018-11-01 14:02 | PSYCHOLOGICAL NOTE ---
Psych Note - Psych Note Date seen by psych provider: 11/01/18 Time seen by psych provider: 07:30 Psych Note: Reason for consult: Suicide attempt Check-in conducted with patient. Patient continues to endorse wanting to cause some self-harm stating "I am confused and I do not know what to do... I just want to go to sleep and never wake up... I am afraid I will do something to kill myself... my mind is so fucked up... I do not know what I want to do or think." Patient continues to state that he feels like he cannot get control of his mind does not want to live like this. Medication recommendations per [facility]'s contracted psychiatrist Dr. Alvaro GATES are as follows Effexor 37.5 mg twice daily BuSpar 10 mg twice daily Diagnosis 296.51 (F31.31) Bipolar 1 Disorder, Mild, Most recent Episode Depressed 304.20 (F14.20) Cocaine Use Disorder, Moderate 292.9 (F11.99) Unspecified Opioid-Related Disorder Impression\\plan: Patient is recommended for continued IVC. Patient reports intentionally trying to harm himself by injecting air into his veins and when that did not kill him he started swallowing batteries and screws. He continues to endorse suicidal ideation and wanting to "end it all." There is concern the patient is demonstrating drug seeking behaviors. While patient attempted to report sobriety for the last 2 years patient was positive and his toxicology screening for both opiate and cocaine. Patient admits to only opiate use of Vicodin and confirms that he is not prescribed it. Attending physicians are asked to consider patient's addiction prior to prescribing any medications. Medication recommendations have been provided; patient will be reevaluated. Dr. Emmanuel was consulted and the care management of this patient; attending physi cians in agreement with recommendations and disposition.
[2018-11-01] MEDS: BUSPIRONE HCL 10 MG TABLET PO SCH ×2 (14:25→18:50)
[2018-11-01] MEDS: VENLAFAXINE HCL 37.5 MG CAP.SR.24H PO SCH ×2 (14:26→22:12)
--- NOTE | 2018-11-01 18:01 | ER Document Report ---
Doctor's Note Notes: 11/01/18 17:59 Records were reviewed, I know this patient well from doing the intake history and physical 2 days ago. He is feeling better at this time. He looks forward to getting to the point where he does not feel afraid of harming himself and will be able to feel safe at home. He is requesting medication to help him sleep this evening. He will be given a dose of Vistaril at 10 PM. Last night he was observed under protocol to rule out narcotic withdrawal and that there was no evidence to suggest that he was in withdrawal as he was claiming. Patient was started on Effexor 37.5 mg twice daily and BuSpar 10 mg twice daily. He will be reevaluated by the psychiatry staff tomorrow to determine if he can be safely discharged home.
[2018-11-01] MEDS ORDERED: HYDROXYZINE PAMOATE 50 MG CAPSULE PO ONE (22:00)
[2018-11-02] MEDS: KETOROLAC TROMETHAMINE INJ/PF 30 MG/1 ML SDV IM SCH ×2 (08:33→08:34)
[2018-11-02] MEDS: BUSPIRONE HCL 10 MG TABLET PO SCH ×2 (09:05→17:11)
[2018-11-02] MEDS: VENLAFAXINE HCL 37.5 MG CAP.SR.24H PO SCH ×2 (09:05→21:20)
--- NOTE | 2018-11-02 09:26 | ER Document Report ---
Doctor's Note Notes: 11/02/18 09:24 33-year-old male who presented to the emergency department after he swallowed screws, nails, and opened AA batteries in attempt to commit suicide. These foreign bodies were removed by endoscopy. The psychology/psychiatry team has been evaluating the patient and started the patient on medications. Vital signs are stable. Labs otherwise as recorded. Patient has no abdominal pain this morning.
--- NOTE | 2018-11-02 17:07 | PSYCHOLOGICAL NOTE ---
Psych Note - Psych Note Date seen by psych provider: 11/02/18 Psych Note: Reason for consult: Suicide attempt Check-in conducted with patient. Medication recommendations per [facility]'s contracted psychiatrist Dr. Alvaro GATES are as follows Effexor 37.5 mg twice daily BuSpar 10 mg twice daily Diagnosis 296.51 (F31.31) Bipolar 1 Disorder, Mild, Most recent Episode Depressed 304.20 (F14.20) Cocaine Use Disorder, Moderate 292.9 (F11.99) Unspecified Opioid-Related Disorder Impression\\plan: Patient is recommended for continued IVC. Patient reports intentionally trying to harm himself by injecting air into his veins and when that did not kill him he started swallowing batteries and screws. He continues to endorse suicidal ideation and wanting to "end it all." There is concern the p atient is demonstrating drug seeking behaviors. While patient attempted to report sobriety for the last 2 years patient was positive and his toxicology screening for both opiate and cocaine. Patient admits to only opiate use of Vicodin and confirms that he is not prescribed it. Attending physicians are asked to consider patient's addiction prior to prescribing any medications. Medication recommendations have been provided; patient will be reevaluated. Dr. Emmanuel was consulted and the care management of this patient; attending physicians in agreement with recommendations and disposition.
--- NOTE | 2018-11-03 09:21 | ER Document Report ---
Doctor's Note Notes: 11/03/18 09:20 33-year-old male with history as recorded after ingesting multiple foreign body secondary to a suicide attempt. Vital signs are stable. Heart rate is currently 92. Patient has no complaints of abdominal pain this morning. Awaiting possible placement and/or reevaluation by the psychiatry/psychology team.
[2018-11-03] MEDS: BUSPIRONE HCL 10 MG TABLET PO SCH ×2 (10:10→18:25)
[2018-11-03] MEDS: VENLAFAXINE HCL 37.5 MG CAP.SR.24H PO SCH ×2 (10:11→23:00)
[2018-11-03] MEDS ORDERED: ACETAMINOPHEN 325 MG TABLET PO ONE (22:17)
[2018-11-03] MEDS ORDERED: VENLAFAXINE HCL 37.5 MG CAP.SR.24H PO ONE (22:45)
--- NOTE | 2018-11-04 09:36 | ER Document Report ---
Doctor's Note Notes: Patient seen and evaluated by myself. Patient is a 33-year-old male who presents emergency department due to a suicide attempt. Patient's been feeling depressed and attempted to commit suicide by ingesting AA batteries, screws, nails. Patient had endoscopic removal of the foreign bodies. No issues overnight per nursing. Patient's vital signs are stable. Patient has no complaints of abdominal pain. He is eating breakfast in the room. Patient states that he still feeling suicidal and if discharged home he states that he will ingest more foreign bodies. Awaiting behavioral health recommendations. 11/04/18 18:34 Behavioral health saw the patient and made medication updates. They would like to keep the patient overnight and see how he does on the new meds. Today we will reevaluate the patient in the morning.
[2018-11-04] MEDS ORDERED: ACETAMINOPHEN 325 MG TABLET PO ONE ×2 (10:01→22:36)
[2018-11-04] MEDS: BUSPIRONE HCL 10 MG TABLET PO SCH ×2 (10:11→19:26)
[2018-11-04] MEDS: VENLAFAXINE HCL 37.5 MG CAP.SR.24H PO SCH (10:24)
[2018-11-04] MEDS: CHLORPROMAZINE HCL 50 MG TABLET PO SCH (20:43)
[2018-11-04] MEDS: OLANZAPINE 5 MG TABLET PO SCH (20:43)
[2018-11-04] MEDS: BENZTROPINE MESYLATE 1 MG TABLET PO SCH (20:44)
[2018-11-05] MEDS: CHLORPROMAZINE HCL 50 MG TABLET PO SCH (08:28)
--- NOTE | 2018-11-05 09:14 | ER Document Report ---
Doctor's Note Notes: Patient seen and evaluated by myself. Patient was brought to the emergency department for a suicide attempt by ingesting AA batteries, screws, nails. Patient had endoscopic removal of the foreign bodies. No issues per nursing. Patient's vital signs are stable. Patient denies any abdominal pain, nausea, vomiting. He is consuming breakfast. Patient states that he is still feeling suicidal. Patient is threatening to ingest more screws if he is discharged. [facility] health made aware. Awaiting their recommendations. 11/05/18 15:47 Behavioral health spoke with the patient. He is currently denying any suicidal ideations. They feel that he is appropriate for discharge home and outpatient follow-up. I went and reevaluated the patient. Patient denies feeling suicidal at this time. He states that he is not planning on ingesting any foreign bodies when he gets home. Patient states that he is feeling better and will take the medications prescribed as directed and follow-up as scheduled.
[2018-11-05] MEDS ORDERED: ACETAMINOPHEN 325 MG TABLET PO ONE (10:38)
[2018-11-05] MEDS: BENZTROPINE MESYLATE 1 MG TABLET PO SCH (10:49)
[2018-11-05] MEDS: OLANZAPINE 5 MG TABLET PO SCH (10:49)
[2018-11-05 16:10] VITALS: BP 129/85
== END 2018-11-05 16:09 | disposition home or self-care (01) ==
LOC: ER 09:37
PROC: 0WC Anatomical Regions, General, Extirpation (ICD-10-PCS; principal; 2018-10-30 13:30)
DX: T18.9XXA Foreign body of alimentary tract, part unspecified, initial encounter (principal); X83.8XXA Intentional self-harm by other specified means, initial encounter; I10 Essential (primary) hypertension; Z87.898 Personal history of other specified conditions; Z91.5 Personal history of self-harm; F17.210 Nicotine dependence, cigarettes, uncomplicated; Z91.14 Patient's other noncompliance with medication regimen; F31.31 Bipolar disorder, current episode depressed, mild; F14.20 Cocaine dependence, uncomplicated; F11.99 Opioid use, unspecified with unspecified opioid-induced disorder
CPT/HCPCS: 93005; 99285; 96372; 96361; 96375; 96365; 96366; 43202; 86900; 86901; 36415; 86850; 80307 ×4; 83690; 85025; 80053; 74022; 93010; J0690; J3490 ×9; J0500; J1885 ×2; S0119; J3010; J2405; J7030; J2704; 731; J2250

== ENCOUNTER 2018-11-07 02:26 | Emergency (ER) | payer SELFPAY ==
--- NOTE | 2018-11-07 03:55 | ER Document Report ---
Addendum entered and electronically signed by FREDERIC RAMIREZ LPCA 11/07/18 12:02: Discharge - Discharge Clinical Impression: Suicidal ideation, Substance abuse Condition: Fair Disposition: HOME, SELF-CARE Additional Instructions: You were assessed and evaluated in the [facility] Emergency Department by the medical and behavioral health teams for cocaine use with subsequent cutting of wrist, and are now considered appropriate for discharge. While in the ED, you received an initial medical screening, wound care for your left wrist, lab work, EKG, medications, direct staff observation, clinical evaluation, multiple assessments, 1:1 counseling, and outpatient resources. Both teams have cleared you for discharge, and review of your record shows a history of recent and past admissions to the ED for similar reasons with elements of drug seeking and inpatient psychiatric admission seeking behaviors. You have been advised on num erous occasions of your responsibility to engage in rehabilitation efforts and your willingness to change your cognitive perspective with subsequent behavior change going forward from discharge. You have received on several occasions resources in which to connect to assist with supporting your recovery process. You are encouraged to utilize the resources provided to you and to maintain compliance with the medication previously prescribed, and to follow up with your outpatient mental health provider. ACUTE ALCOHOL INTOXICATION and ALCOHOL ABUSE: Your evaluation revealed very high levels of alcohol. You can from drinking a large amount of alcohol rapidly! Further, there's the risk of falls, traffic accidents, and fights. A high portion (about 50 percent) of the serious injuries seen in hospital emergency rooms are caused by alcohol. Alcohol overdose is usually due to an underlying emotional or psychiatric problem. You may benefit from counselling. If "binge" drinking is an ongoing problem for you, or if you drink ANY AMOUNT of alcohol EVERY day, you most likely have a tendency to alcoholism. You should avoid alcohol totally. We can refer you for treatment. Persons with alcohol problems are often also prone to other addictions -- you should discuss any use of medications or drugs with the doctor. You should be watched at home for the next several hours by someone who has not been drinking. Get extra fluids for the next 24 hours. Call the doctor if there is repeated vomiting, increasing headache, decreasing level of alertness, or any other worsening. CHRONIC ALCOHOLISM and ALCOHOL ABUSE: Your evaluation reveals evidence of chronic alcoholism, an addiction to alcohol. The tendency to alcoholism may be inherited. Chronic use of alcohol weakens muscles, causes fatty deposits in the liver, damages the stomach, makes you more prone to infections, and can cause defects in unborn children. In the long run, brain atrophy and cirrhosis of the liver result. You are also at greater risk for certain types of cancer, such as cancer of the mouth, throat, stomach, and liver. Counselling services are available to help you. In-hospital treatment programs often help. Support groups such as Alcoholics Anonymous can be very useful in beating this addiction. Your physician can make a referral for you. As alcoholics often are prone to other addictions, you should discuss your use of any other medications with the doctor. ALCOHOL WITHDRAWAL: Your symptoms are caused by alcohol withdrawal. After a period of frequent drinking, the brain and body are changed by the alcohol. When you quit or reduce your drinking, the nervous system becomes unstable. Withdrawal symptoms can start a few hours after your last drink, but sometimes don't begin until a couple of days later. Symptoms can include shakiness, sweating, insomnia, nausea, vomiting, fearfulness, hallucinations, and seizures. In addition to the acute effects of alcohol withdrawal, we often have to deal with the medical effects of alcoholism. These problems often include dehydr ation, stomach irritation, intestinal bleeding, low blood sugar, liver disease, and pancreas inflammation. Treatment for alcohol withdrawal includes mild sedatives, vitamins, and fluids. You need to be with someone who can help if symptoms become severe. Many patients can withdraw at home. Admission to the hospital or a detox facility may be necessary if withdrawal symptoms are severe and uncontrollable. Abstaining from alcohol is the only effective long-term treatment. If you start drinking again, you will not be able to control yourself after the first drink. Treatment programs are available. In addition, many alcoholics benefit from Alcoholics Anonymous or other support groups available through your counselor or orthodoxy surfacing machine operator. [employer]ON and A[employer]-TE[employer] are support groups for frie nds and family members of an alcoholic. Go to the emergency room if you develop persistent vomiting, severe abdominal pain, fever, shortness of breath, hallucinations, uncontrollable tremors, or seizures. COCAINE ABUSE: Cocaine causes many dangerous medical problems. Problems can occur even with "usual" amounts. Cocaine affects judgment, creating a sense of invul nerability. Cocaine users often make bad decisions that seem "great" at the time. Most cocaine users eventually will be hurt by bad job performance, damaged personal relations, crime, and unsafe sexual practices. Toxic effects of cocaine can include seizures, hallucinations, delusions, high blood pressure, heart damage, or sudden . There's always the risk of a "bad batch." But heart attacks, brain hemorrhages, or cardiac arrest can occur unpredictably even with "normal" use. Injection of cocaine is risky for abscesses, endocarditis (heart infection), pneumonia, and AIDS. Withdrawal from cocaine often causes anxiety and drug cravings. Some users become paranoid and psychotic. Many treatment programs are available, but you must make the decision to quit. Medication can be prescribed to control the symptoms of cocaine toxicity (beta blockers or benzodiazepines). Withdrawal symptoms may require tranquilizers. FOLLOW-UP CARE: If you have been referred to a physician for follow-up care, call the physicians office for an appointment as you were instructed or within the next two days. If you experience worsening or a significant change in your symptoms, notify the physician immediately or return to the Emergency Department at any time for re-evaluation. Original Note: ED Psych Disorder / Suicide - General Chief Complaint: Suicidal Ideation Stated Complaint: PSYCH PROBLEMS Time Seen by Provider: 11/07/18 03:54 Mode of Arrival: Ambulatory Information source: Patient Notes: Patient is a 33-year-old male with a history of chronic depression as well as schizophrenia currently taking both Thorazine and Zyprexa who presents with suicidal thoughts and self inflicted injuries to the left arm. Patient reports that he was recently involuntarily committed for similar thoughts, he also at that time approximately 2 weeks ago swallowed multiple sharp objects requiring endoscopic removal. He reports having similar thoughts now. He took a small razor blade and made several cuts to the left arm in an attempt to "bleed to ." He currently has suicidal thoughts but no delusions. Of note, patient does report having visual hallucinations that he describes as "flashbacks." TRAVEL OUTSIDE OF THE [place] IN LAST 30 DAYS: No - HPI Patient complains to provider of: Suicidal ideation, Self injury Onset: Just prior to arrival Onset was: Cannot confirm Quality of pain: No pain Severity: None Pain Level: Denies Suicide Risk Factors: Hallucinations, Lack of social support, Male, No spouse Situational problems related to: Spouse Injury to: Upper extremity Normal mood: No - Depressed Associated symptoms: Normal affect, Depressed Similar symptoms previously: Yes Recently seen / treated by doctor: Yes - Related Data Allergies/Adverse Reactions: No Known Allergies Allergy (Verified 10/30/18 09:38) Past Medical History - General Information source: Patient - Social History Smoking Status: Unknown if Ever Smoked Chew tobacco use (# tins/day): No Frequency of alcohol use: Heavy Drug Abuse: Cocaine Lives with: Alone Family History: Reviewed & Not Pertinent Patient has suicidal ideation: Yes Patient has homicidal ideation: No - Past Medical History Cardiac Medical History: Reports: Hx Hypertension Pulmonary Medical History: Reports: None EENT Medical History: Reports: None Neurological Medical History: Reports: None Endocrine Medical History: Reports: None Renal/ Medical History: Reports: Hx Renal Insufficiency. Denies: Hx Peritoneal Dialysis Malignancy Medical History: Reports None GI Medical History: Reports: Hx Liver Failure Musculoskeletal Medical History: Reports None Skin Medical History: Reports None Psychiatric Medical History: Reports: Hx Depression - Had uPatient has had previous admispions for ingestion of foreign bodies in Traumatic Medical History: Reports: None Infectious Medical History: Reports: None Surgical Hx: Negative - Immunizations Immunizations up to date: Yes Hx Diphtheria, Pertussis, Tetanus Vaccination: Yes Review of Systems - Review of Systems Constitutional: No symptoms reported EENT: No symptoms reported Cardiovascular: No symptoms reported Respiratory: No symptoms reported Gastrointestinal: No symptoms reported Genitourinary: No symptoms reported Male Genitourinary: No symptoms reported Musculoskeletal: No symptoms reported Skin: No symptoms reported Hematologic/Lymphatic: No symptoms reported Neurological/Psychological: See HPI, Depression, Suicidal ideation -: Yes All other systems reviewed and negative Physical Exam - Vital signs Vitals: Temp Pulse Resp BP Pulse Ox 98.4 F 104 H 18 126/82 H 97 11/07/18 02:43 11/07/18 02:43 11/07/18 02:43 11/07/18 02:43 11/07/18 02:43 Interpretation: Normal - Notes Notes: Well-appearing in no acute distress - General General appearance: Appears well, Alert - HEENT Head: Normocephalic, Atraumatic Eyes: Normal Pupils: PERRL - Respiratory Respiratory status: No respiratory distress Chest status: Nontender Breath sounds: Normal Chest palpation: Normal - Cardiovascular Rhythm: Regular Heart sounds: Normal auscultation Murmur: No - Abdominal Inspection: Normal Distension: No distension Bowel sounds: Normal Tenderness: Nontender Organomegaly: No organomegaly - Rectal Notes: Deferred - Genitourinary Notes: Deferred - Back Back: Normal, Nontender - Extremities General upper extremity: Nontender, Normal color, Normal ROM, Normal temperature General lower extremity: Normal inspection, Nontender, Normal color, Normal ROM, Normal temperature, Normal weight bearing. No: Shruti's sign Forearm: Other - Left forearm has several superficial linear lacerations, no active bleeding - Neurological Neuro grossly intact: Yes Cognition: Normal Orientation: AAOx4 [place] Coma Scale Eye Opening: Spontaneous [place] Coma Scale Verbal: Oriented [place] Coma Scale Motor: Obeys Commands [place] Coma Scale Total: 15 Speech: Normal Motor strength normal: LUE, RUE, LLE, RLE Sensory: Normal - Psychological Associated symptoms: Normal affect, Depressed - Skin Skin Temperature: Warm Skin Moisture: Dry Skin Color: Normal Course - Re-evaluation Re-evalutation: 11/07/18 06:10 Anticipate medical clearance, will involuntarily commit the patient for inpatient treatment. 11/07/18 06:25 Patent will be signed-out to Dr. Santana pending medical clearance. Labs and urine are still pending. He was given oral Keflex. - Vital Signs Vital signs: Temp Pulse Resp BP Pulse Ox 98.4 F 104 H 18 126/82 H 97 11/07/18 02:43 11/07/18 02:43 11/07/18 02:43 11/07/18 02:43 11/07/18 02:43 - Laboratory Result Diagrams: 11/07/18 03:48 11/07/18 03:48 - EKG Interpretation by Tn EKG shows normal: Sinus rhythm Rate: Normal Rhythm: NSR [place]/QRS: No: Right axis deviation, Left axis deviation, RBBB, LBBB, IVCD, LAHB/LAFB, LPHB/LPFB, Bifasicular block P Waves: No: JERI, LAE, Absent, AV Dissociation, Other When compared to previous EKG there are: No significant change - Transfer of Care Care transferred to following provider: Dr. Santana Notes: 11/07/18 06:28 Medical clearance is pending. Patient has been involuntarily committed. Discharge - Discharge Clinical Impression: Suicidal ideation, Depression Condition: Fair Disposition: PSYCH HOSP/UNIT
[2018-11-07 06:25] LABS: ABSOLUTE BASOPHILS # (AUTO) 0.1 10^3/uL (0.0-0.2); ABSOLUTE EOSINOPHILS # (AUTO) 0.2 10^3/uL (0.0-0.6); ABSOLUTE MONOCYTES (AUTO) 1.3 10^3/uL (0.1-1.4); ABSOLUTE NEUT (AUTO) 4.6 10^3/uL (1.7-8.2); EOSINOPHILS % (AUTO) 1.9 % (0-6); HEMATOCRIT 40.7 % (37.9-51.0); HEMOGLOBIN 13.9 g/dL (13.5-17.0); LYMPHOCYTES % (AUTO) 44.8 % (13-45); MEAN CORPUSCULAR HEMOGLOBIN 30.5 pg (27.0-33.4); MEAN CORPUSCULAR HGB CONC 34.1 g/dL (32.0-36.0); MEAN CORPUSCULAR VOLUME 89 fl (80-97); MONOCYTES % (AUTO) 11.3 % (3-13); PLATELET COUNT 272 10^3/uL (150-450); RED BLOOD COUNT 4.56 10^6/uL (4.35-5.55); RED CELL DISTRIBUTION WIDTH 13.8 % (11.5-14.0); TOTAL CELLS COUNTED % (AUTO) 100 %; WHITE BLOOD COUNT 11.2 10^3/uL (4.0-10.5)
[2018-11-07 06:39] LABS: ACETAMINOPHEN < 10 ug/mL (10-30); ALANINE AMINOTRANSFERASE 158 U/L (21-72); ALBUMIN 4.5 g/dL (3.5-5.0); ALCOHOL 54 mg/dL (NONE DETECTED); ALKALINE PHOSPHATASE 73 U/L (38-126); ANION GAP 12 (5-19); ASPARTATE AMINO TRANSFERASE 109 U/L (17-59); BILIRUBIN,DIRECT 0.4 mg/dL (0.0-0.4); BILIRUBIN,TOTAL 0.7 mg/dL (0.2-1.3); BLOOD UREA NITROGEN 12 mg/dL (7-20); CALCIUM 9.8 mg/dL (8.4-10.2); CARBON DIOXIDE 25 mmol/L (22-30); CHLORIDE 104 mmol/L (98-107); GLUCOSE 109 mg/dL (75-110); POTASSIUM 4.2 mmol/L (3.6-5.0); SALICYLATE < 1.0 mg/dL (2.0-20.0); SODIUM 140.9 mmol/L (137-145); TOTAL PROTEIN 7.8 g/dL (6.3-8.2)
[2018-11-07] MEDS ORDERED: ACETAMINOPHEN 325 MG TABLET PO ONE (06:57)
[2018-11-07 07:04] LABS: APPEARANCE,URINE SLIGHTLY-CLOUDY; BILIRUBIN,URINE NEGATIVE (NEGATIVE); GLUCOSE, URINE NEGATIVE (NEGATIVE); KETONES,URINE NEGATIVE (NEGATIVE); LEUKOCYTE ESTERASE,URINE NEGATIVE (NEGATIVE); NITRITE,URINE NEGATIVE (NEGATIVE); PROTEIN,URINE NEGATIVE (NEGATIVE); URINE SPECIFIC GRAVITY 1.023
[2018-11-07 07:05] LABS: COLOR,URINE YELLOW
[2018-11-07] MEDS: CEPHALEXIN 500 MG CAPSULE PO SCH ×2 (07:07→09:56)
[2018-11-07 07:20] LABS: URINE BARBITURATES SCREEN NEGATIVE; URINE BENZODIAZEPINES SCREEN NEGATIVE; URINE COCAINE SCREEN UNCONFIRMED POSITIVE; URINE MARIJUANA (THC) SCREEN UNCONFIRMED POSITIVE; URINE METHADONE SCREEN NEGATIVE; URINE PHENCYCLIDINE SCREEN NEGATIVE
[2018-11-07] MEDS ORDERED: OLANZAPINE 5 MG TABLET PO SCH (10:00)
--- NOTE | 2018-11-07 10:39 | ER Document Report ---
Doctor's Note Notes: 11/07/18 10:37 Patient seen and evaluted by myself. Patient is a 33-year-old male with a history of chronic depression as well as schizophrenia currently taking both Thorazine and Zyprexa who presents with suicidal thoughts and self inflicted injuries to the left arm. He was recently discharged [facility]. No nursing issues over night. Vital signs are stable. Patient has no current complaints. [facility] to evaluate patient. 11/07/18 12:28 [facility] saw and evaluated the patient. They are comfortable with the patient being discharged home. Patient has appropriate discharge planning. 11/07/18 12:28
[2018-11-07 12:40] VITALS: BP 126/77
--- NOTE | 2018-11-07 14:18 | EKG REPORT ---
SEVERITY:- NORMAL ECG - SINUS RHYTHM : Confirmed by: Iesha Ordoñez MD 07-Nov-2018 14:17:54
[2018-11-07] MEDS ORDERED: CHLORPROMAZINE HCL 50 MG TABLET PO SCH (22:00)
== END 2018-11-07 12:40 | disposition home or self-care (01) ==
LOC: ER 02:26
DX: S51.812A Laceration without foreign body of left forearm, initial encounter (principal); X78.8XXA Intentional self-harm by other sharp object, initial encounter; F32.9 Major depressive disorder, single episode, unspecified; F20.9 Schizophrenia, unspecified; Z79.899 Other long term (current) drug therapy; F14.10 Cocaine abuse, uncomplicated; I10 Essential (primary) hypertension
CPT/HCPCS: 36415; 80053; 80307; 81001; 85025; 93005; 93010; 99285